=== PATIENT | male | born 1990 | race Hispanic/Latino ===

== ENCOUNTER 2018-09-13 20:14 | Emergency (ER) | payer BC ==
[2018-09-13 20:27] VITALS: RESP 18; TEMP 98.4; BMI 25.8
--- NOTE | 2018-09-13 20:44 | ED PDOC ---
Arrival/HPI - General Chief Complaint: Palpitations Time Seen by Provider: 09/13/18 20:18 - History of Present Illness Narrative History of Present Illness (Text): 09/13/18 20:32 27 m with no significant pmhx presents to the Ed with chief complaint of int ermittent palpitations since yesterday morning. Patient states yesterday morning he felt his heart racing/pounding, had to take a deep breath to control the abnormal sensation. Patient states this morning at 430 he noticed the same. Patient states he recently took a flight for a 3 day vacation. Patient denies any chest pain, no persistent shortness of breath, no leg/calf pain or lower leg swelling. Patient states he drinks coffee regularly, drank a double espresso last night. No tobacco, no street drugs, occassional alcohol. Past Medical History - Tetanus Immunization Tetanus Immunization: Unknown - Psychiatric Hx Depression: No Hx Emotional Abuse: No Hx Physical Abuse: No Hx Substance Use: No - Suicidal Assessment Feels Threatened In Home Enviroment: No Family/Social History Family/Social History: denies: Blood Clots Smoking Status: Never Smoked Hx Alcohol Use: Yes Frequency of alcohol use: Socially Hx Substance Use: No Hx Substance Use Treatment: No Allergies/Home Meds Allergies/Adverse Reactions: Allergies Penicillins Allergy (Verified 09/13/18 20:21) ANAPHYLAXIS Home Medications: Home Meds Medication Instructions Recorded Confirmed No Known Home Med 09/13/18 09/13/18 Review of Systems - Physician Review All systems were reviewed & negative as marked: Yes Physical Exam - Physical Exam Narrative Physical Exam (Text): 09/13/18 20:50 Gen: VS reviewed, alert, well developed, well nourished, nontoxic, mild distress Eye: EOMI, PERRL Neck: no JVD, supple, no adenopathy CV: regular rate, regular rhythm, no rubs,no murmur, S1, S2 Pulm: no distress, clear to auscultation, no wheeze, no rhonchi, breath sounds equal, no rales Ext: no edema Skin: good color, no cyanosis Psych: responds appropriately to questions, normal affect Neuro: oriented x3, CN2-12 intact grossly, motor intact, sensation intact Vital Signs Temp Pulse Resp BP Pulse Ox 09/13/18 20:22 98.4 F 69 18 156/95 H 99 Medical Decision Making ED Course and Treatment: 09/13/18 22:37 patient seen for intermittent palpitations. labs ok, patient feels well at this time. patient ready to go home, will see his pcp tomorrow. patient agrees to return for any new or worsening symptoms.patient understands that cardiology referral is likely in order. - RAD Interpretation Narrative RAD Interpretations (Text): 09/13/18 22:05 cxr my read: no focal infiltrate, no ptx, no cardiomegaly Bilingual Instructor: ED Physician - EKG Interpretation EKG Interpretation (Text): 09/13/18 21:53 ekg my read: 2104: nsr at 61 bpm, nml qrs, nml axis, no acute sttw abn 09/13/18 21:54 ekg monitor tech: sinus rhythm at 65 bpm Interpreted by ED Physician: Yes Disposition/Present on Arrival - Present on Arrival Any Indicators Present on Arrival: No History of DVT/PE: No History of Uncontrolled Diabetes: No Urinary Catheter: No History of Decub. Ulcer: No History Surgical Site Infection Following: None - Disposition Have Diagnosis and Disposition been Completed?: Yes Diagnosis: Palpitations, Caffeine dependence Disposition: HOME/ ROUTINE Disposition Time: 22:39 Patient Plan: Discharge Condition: STABLE Discharge Instructions (ExitCare): Palpitations Additional Instructions: return for any new or worsening symptoms. Forms: [facility] (Slovenian), WORK NOTE
[2018-09-13 21:30] LABS: BASO # 0.04 K/mm3 (0.0-2.0); BASO % 0.6 % (0.0-3.0); EOS # 0.3 (0.0-0.7); HEMOGLOBIN 14.2 g/dL (14.0-18.0); LYMPH # 2.8 (1.2-3.4); LYMPH % 40.7 % (22.0-35.0); MEAN CELL VOLUME 87.2 fl (80.0-105.0); MEAN CORPUSCULAR HEMOGLOBIN 29.3 pg (25.0-35.0); MEAN CORPUSCULAR HGB CONC 33.6 g/dl (31.0-37.0); MEAN PLATELET VOLUME 10.5 fl (7.0-11.0); MONO # 0.6 (0.1-0.6); MONO % 8.3 % (1.0-6.0); RBC 4.85 10^6/uL (3.5-6.1); RED CELL DISTRIBUTION WIDTH 12.7 % (11.5-14.5); WHITE BLOOD COUNT 6.9 10^3/uL (4.5-11.0)
[2018-09-13 21:42] LABS: ALB/GLOB RATIO 1.4 (1.1-1.8); ALBUMIN 4.6 g/dL (3.0-4.8); BLOOD UREA NITROGEN 19 mg/dL (7-21); CALCIUM 9.9 mg/dL (8.4-10.5); GFR NON-AFRICAN AMERICAN > 60
[2018-09-13 21:57] LABS: ALT/SGPT 17 U/L (7-56); AST/SGOT 26 U/L (17-59)
[2018-09-13 23:34] VITALS: BP 135/89; PULSE 72; O2SAT 100
--- NOTE | 2018-09-14 13:08 | RAD ---
Date of service: 09/13/2018 HISTORY: shortness of breath COMPARISON: No prior. FINDINGS: LUNGS: The lungs are well inflated and clear. PLEURA: No pleural effusions or pneumothorax. CARDIOVASCULAR: The heart is normal in size. No aortic atherosclerotic calcifications present. OSSEOUS STRUCTURES: Within normal limits for the patient's age. VISUALIZED UPPER ABDOMEN: Normal. OTHER FINDINGS: None. IMPRESSION: No active pulmonary disease.
--- NOTE | 2018-09-14 14:54 | CARD ---
APPROVED REPORT Date of service: 09/13/2018 EKG Measurement Heart [id number] <Conclusion> Normal sinus rhythm with sinus arrhythmia Otherwise normal ECG
== END 2018-09-13 22:45 | disposition home or self-care (01) ==
LOC: ED 20:14
DX: R00.2 Palpitations (principal); F15.20 Other stimulant dependence, uncomplicated